=== PATIENT | female | born 1940 | race Caucasian/White ===

== ENCOUNTER 2018-02-03 23:45 | Observation (INO) | payer MEDICARE ==
[~2018-02-03] VITALS: Ht 157.5 cm; Wt 56.9 kg
[~2018-02-03 23:45] MED LIST: ALBU90OI6 INH; ALEN70 PO; ALLERCLEAR10 MG PO; AMLO5 PO; ASPI81CH PO; ATEN25 PO; B-100 COMPLEX100 MG PO; BREO ELLIPTA 11 EACH IH; BUPR150ERA PO; CALCA500CH PO; CHOL10002 PO; FISH1000 PO; FLUT.05NI; MELO7.5 PO; Omeprazole20 M1 PO; RANI150 PO; RISE35 PO
[2018-02-04] MEDS ORDERED: AMLOATOR PO (00:03)
[2018-02-04] MEDS ORDERED: ATEN25 PO (00:04)
[2018-02-04] MEDS ORDERED: LOSA25 PO (00:06)
[2018-02-04 00:55] LABS: BASOPHILS ABSOLUTE AUTO 0.07 K/mm3 (0.00-0.23); BASOPHILS PERCENT AUTO 1 % (0-2); EOSINOPHILS ABSOLUTE AUTO 0.09 K/mm3 (0.00-0.68); EOSINOPHILS PERCENT AUTO 1 % (0-6); Hemoglobin 15.1 g/dL (11.5-16.0); IMMATURE GRAN ABSOLUTE AUTO 0.06 K/mm3 (0.00-0.10); IMMATURE GRAN PERCENT AUTO 0 % (0-1); LYMPHOCYTES ABSOLUTE AUTO 2.61 K/mm3 (0.84-5.20); LYMPHOCYTES PERCENT AUTO 17 % (21-46); MONOCYTES ABSOLUTE AUTO 0.72 K/mm3 (0.16-1.47); MONOCYTES PERCENT AUTO 5 % (4-13); Mean Corpuscular HGB 30.6 pg (26.0-34.0); Mean Corpuscular HGB Conc 34.3 g/dL (31.5-36.5); Mean Corpuscular Volume 89 fL (80-100); Mean Platelet Volume 9.6 fL (9.1-12.4); NEUTROPHILS ABSOLUTE AUTO 11.49 K/mm3 (1.96-9.15); NEUTROPHILS PERCENT AUTO 76 % (41-73); Platelet Count 366 K/mm3 (150-400); RDW Coefficient Variation 13.7 % (11.7-14.2); Red Blood Cell Count 4.94 M/mm3 (3.80-5.20); White Blood Cell Count 15.04 K/mm3 (4.00-11.30)
[2018-02-04 00:58] LABS: Source, Urine Clean Catch
[2018-02-04 01:00] LABS: Bilirubin, Urine Neg (Neg); Blood, Urine 2+ (Neg); Glucose Qualitative, Urine Neg (Neg); Ketones, Urine Neg (Neg); Leukocyte Esterase, Urine Neg (Neg); Nitrite, Urine Neg (Neg); Protein, Urine Neg (Neg); Specific Gravity, Urine 1.015 (1.003-1.022); Urobilinogen, Urine NORM (Normal); pH, Urine 6.5 (5.0-8.0)
[2018-02-04 01:05] LABS: Appearance, Urine Clear (Clear); Bacteria Not Seen /hpf; Color, Urine Yellow (P-Yellow); Red Blood Cells, Urine 0-2 /hpf (0-2); Squamous Epithelial Cells Few /hpf (Few); White Blood Cells, Urine Not Seen /hpf (0-5)
[2018-02-04 01:07] LABS: Alanine Aminotransfer (ALT/SGP 25 U/L (12-78); Albumin, Blood 3.5 g/dL (3.4-5.0); Albumin/Globulin Ratio 0.8 (0.8-1.8); Alk Phos 75 U/L (50-136); Anion Gap 8 mmol/L (6-16); Aspartate Aminotrans (AST/SGOT 23 U/L (12-37); Bilirubin, Total 0.4 mg/dL (0.1-1.0); Blood Urea Nitrogen 17 mg/dL (8-24); Bun/Creatinine Ratio 23.3 (12.0-20.0); CO2, Blood 28 mmol/L (21-32); Chloride, Blood 98 mmol/L (98-108); Creatinine, Blood 0.73 mg/dL (0.40-1.00); Globulin, Blood 4.4 g/dL (2.2-4.0); Glomerular Filtration Rate >60 (60-); Glucose, Blood 108 mg/dL (70-99); Potassium, Blood 4.1 mmol/L (3.5-5.5); Sodium, Blood 134 mmol/L (136-145); Total Protein, Blood 7.9 g/dL (6.4-8.2)
[2018-02-04 05:19] LABS: Hematocrit 41.3 % (33.0-51.0); Hemoglobin 14.3 g/dL (11.5-16.0); Mean Corpuscular HGB 30.1 pg (26.0-34.0); Mean Corpuscular HGB Conc 34.6 g/dL (31.5-36.5); Mean Corpuscular Volume 87 fL (80-100); Mean Platelet Volume 9.6 fL (9.1-12.4); Platelet Count 340 K/mm3 (150-400); RDW Coefficient Variation 13.5 % (11.7-14.2); RDW Standard Deviation 43.2 fL (35.1-46.3); Red Blood Cell Count 4.75 M/mm3 (3.80-5.20); White Blood Cell Count 15.05 K/mm3 (4.00-11.30)
[2018-02-04 05:42] LABS: Alanine Aminotransfer (ALT/SGP 23 U/L (12-78); Albumin, Blood 3.2 g/dL (3.4-5.0); Albumin/Globulin Ratio 0.8 (0.8-1.8); Alk Phos 70 U/L (50-136); Anion Gap 10 mmol/L (6-16); Aspartate Aminotrans (AST/SGOT 26 U/L (12-37); Bilirubin, Total 0.7 mg/dL (0.1-1.0); Blood Urea Nitrogen 16 mg/dL (8-24); Bun/Creatinine Ratio 22.5 (12.0-20.0); CO2, Blood 26 mmol/L (21-32); Calcium, Blood 9.1 mg/dL (8.5-10.1); Chloride, Blood 96 mmol/L (98-108); Creatinine, Blood 0.71 mg/dL (0.40-1.00); Glomerular Filtration Rate >60 (60-); Glucose, Blood 110 mg/dL (70-99); Potassium, Blood 4.2 mmol/L (3.5-5.5); Sodium, Blood 132 mmol/L (136-145); Total Protein, Blood 7.2 g/dL (6.4-8.2)
== END 2018-02-05 14:11 | disposition home or self-care (01) ==
LOC: ER 23:45 → MEDS 02-04 02:42 → ENPENDDIS 02-05 11:00 → MEDS 02-05 11:33
PROVIDERS: Emergency Medicine; Internal Medicine
DX: K56.609 Unspecified intestinal obstruction, unspecified as to partial versus complete obstruction (principal); I10 Essential (primary) hypertension; J44.9 Chronic obstructive pulmonary disease, unspecified; F17.210 Nicotine dependence, cigarettes, uncomplicated; Z88.1 Allergy status to other antibiotic agents; Z88.8 Allergy status to other drugs, medicaments and biological substances; Z79.899 Other long term (current) drug therapy; Z79.1 Long term (current) use of non-steroidal anti-inflammatories (NSAID); Z79.82 Long term (current) use of aspirin
CPT/HCPCS: 36415; 74177; 80053; 81001; 82947; 83690; 85025; 85027; 93005; 93010; 94640; 94760; 96374; 99285; G0378; J1650; J1885; J2310; J2405; J3010; J7030; Q9967

== ENCOUNTER 2020-04-21 08:07 | Emergency (ER) | payer MEDICARE ==
[~2020-04-21] VITALS: Ht 154.9 cm; Wt 59.0 kg
[~2020-04-21 08:07] MED LIST changes: +AMLOATOR PO; +LOSA25 PO; +Robaxin-750750 MG PO; +TRAM50 PO
[2020-04-21] MEDS ORDERED: ATOR20 PO (08:20)
[2020-04-21] MEDS ORDERED: GUAI600T33 PO (08:20)
[2020-04-21 08:44] LABS: BASOPHILS ABSOLUTE AUTO 0.06 K/mm3 (0.00-0.23); BASOPHILS PERCENT AUTO 0 % (0-2); EOSINOPHILS ABSOLUTE AUTO 0.12 K/mm3 (0.00-0.68); EOSINOPHILS PERCENT AUTO 1 % (0-6); Hematocrit 38.2 % (33.0-51.0); Hemoglobin 12.3 g/dL (11.5-16.0); IMMATURE GRAN ABSOLUTE AUTO 0.05 K/mm3 (0.00-0.10); IMMATURE GRAN PERCENT AUTO 0 % (0-1); LYMPHOCYTES ABSOLUTE AUTO 2.06 K/mm3 (0.84-5.20); LYMPHOCYTES PERCENT AUTO 15 % (21-46); MONOCYTES ABSOLUTE AUTO 0.79 K/mm3 (0.16-1.47); MONOCYTES PERCENT AUTO 6 % (4-13); Mean Corpuscular HGB 29.6 pg (26.0-34.0); Mean Corpuscular HGB Conc 32.2 g/dL (31.5-36.5); Mean Corpuscular Volume 92 fL (80-100); Mean Platelet Volume 9.7 fL (9.1-12.4); NEUTROPHILS PERCENT AUTO 78 % (41-73); Platelet Count 278 K/mm3 (150-400); RDW Coefficient Variation 13.8 % (11.7-14.2); RDW Standard Deviation 47.2 fL (35.1-46.3); Red Blood Cell Count 4.15 M/mm3 (3.80-5.20); White Blood Cell Count 13.98 K/mm3 (4.00-11.30)
[2020-04-21 08:59] LABS: Alanine Aminotransfer (ALT/SGP 13 U/L (12-78); Albumin, Blood 2.8 g/dL (3.4-5.0); Albumin/Globulin Ratio 0.7 (0.8-1.8); Alk Phos 78 U/L (50-136); Anion Gap 4 mmol/L (6-16); Aspartate Aminotrans (AST/SGOT 19 U/L (12-37); Bilirubin, Total 0.6 mg/dL (0.1-1.0); Blood Urea Nitrogen 11 mg/dL (8-24); Bun/Creatinine Ratio 13.9 (12.0-20.0); CO2, Blood 26 mmol/L (21-32); Calcium, Blood 8.3 mg/dL (8.5-10.1); Chloride, Blood 103 mmol/L (98-108); Creatinine, Blood 0.79 mg/dL (0.40-1.00); Globulin, Blood 3.9 g/dL (2.2-4.0); Glomerular Filtration Rate >60 (60-); Glucose, Blood 108 mg/dL (70-99); Potassium, Blood 4.4 mmol/L (3.5-5.5); Sodium, Blood 133 mmol/L (136-145); Total Protein, Blood 6.7 g/dL (6.4-8.2)
== END 2020-04-21 10:38 | disposition home or self-care (01) ==
LOC: ER 08:07
PROVIDERS: Emergency Medicine
DX: I95.9 Hypotension, unspecified (principal); Z88.1 Allergy status to other antibiotic agents; Z88.5 Allergy status to narcotic agent; Z88.8 Allergy status to other drugs, medicaments and biological substances; Z79.899 Other long term (current) drug therapy; Z79.82 Long term (current) use of aspirin; I10 Essential (primary) hypertension; I47.1 Supraventricular tachycardia; J44.9 Chronic obstructive pulmonary disease, unspecified
CPT/HCPCS: 80053; 84484; 85025; 93005; 93010; 96360; 99284-25; J7030

== ENCOUNTER 2021-10-23 23:24 | Emergency (ER) | payer MEDICARE ==
[~2021-10-23] VITALS: Ht 154.9 cm; Wt 55.8 kg
[~2021-10-23 23:24] MED LIST changes: +ATOR20 PO; +GUAI600T33 PO
[2021-10-23 23:46] LABS: BASOPHILS ABSOLUTE AUTO 0.05 K/mm3 (0.00-0.23); BASOPHILS PERCENT AUTO 0 % (0-2); EOSINOPHILS ABSOLUTE AUTO 0.03 K/mm3 (0.00-0.68); EOSINOPHILS PERCENT AUTO 0 % (0-6); Hematocrit 38.6 % (33.0-51.0); Hemoglobin 12.6 g/dL (11.5-16.0); IMMATURE GRAN ABSOLUTE AUTO 0.05 K/mm3 (0.00-0.10); IMMATURE GRAN PERCENT AUTO 0 % (0-1); LYMPHOCYTES ABSOLUTE AUTO 2.27 K/mm3 (0.84-5.20); LYMPHOCYTES PERCENT AUTO 18 % (21-46); MONOCYTES ABSOLUTE AUTO 0.82 K/mm3 (0.16-1.47); MONOCYTES PERCENT AUTO 7 % (4-13); Mean Corpuscular HGB 28.1 pg (26.0-34.0); Mean Corpuscular HGB Conc 32.6 g/dL (31.5-36.5); Mean Corpuscular Volume 86 fL (80-100); Mean Platelet Volume 9.6 fL (9.1-12.4); NEUTROPHILS ABSOLUTE AUTO 9.46 K/mm3 (1.96-9.15); NEUTROPHILS PERCENT AUTO 75 % (41-73); Platelet Count 246 K/mm3 (150-400); RDW Coefficient Variation 15.3 % (11.7-14.2); RDW Standard Deviation 48.5 fL (35.1-46.3); Red Blood Cell Count 4.48 M/mm3 (3.80-5.20); White Blood Cell Count 12.68 K/mm3 (4.00-11.30)
[2021-10-24] LABS: Anion Gap 7 mmol/L (6-16); Blood Urea Nitrogen 12 mg/dL (8-24); Bun/Creatinine Ratio 15.8 (12.0-20.0); CO2, Blood 27 mmol/L (21-32); Calcium, Blood 8.5 mg/dL (8.5-10.1); Chloride, Blood 99 mmol/L (98-108); Creatinine, Blood 0.76 mg/dL (0.40-1.00); Glomerular Filtration Rate >60 (60-); Glucose, Blood 144 mg/dL (70-99); Potassium, Blood 3.3 mmol/L (3.5-5.5); Sodium, Blood 133 mmol/L (136-145)
[2021-10-24] MEDS ORDERED: DOXY100 PO (00:59)
[2021-10-24] MEDS ORDERED: PRED20 PO (00:59)
== END 2021-10-24 01:58 | disposition home or self-care (01) ==
LOC: ER 23:24
PROVIDERS: Student in an Organized Health Care Education/Training Program
DX: U07.1 COVID-19 (principal); R55 Syncope and collapse; E86.0 Dehydration; E87.6 Hypokalemia; J44.9 Chronic obstructive pulmonary disease, unspecified; Z79.82 Long term (current) use of aspirin; Z79.2 Long term (current) use of antibiotics; Z79.899 Other long term (current) drug therapy; I10 Essential (primary) hypertension; Z88.1 Allergy status to other antibiotic agents; Z88.5 Allergy status to narcotic agent; Z88.8 Allergy status to other drugs, medicaments and biological substances
CPT/HCPCS: 36415; 71045; 80048; 85025; 93005; 93010; 99284-25; A9270; J7030; J7512; M0247

== ENCOUNTER 2021-12-30 12:46 | Emergency (ER) | payer MEDICARE ==
[~2021-12-30] VITALS: Ht 157.5 cm; Wt 54.4 kg
[~2021-12-30 12:46] MED LIST changes: +DOXY100 PO; +PRED20 PO; +Robaxin750 MG PO; +Ultram50 MG PO; +Voltaren100 GM TOP
[2021-12-30 13:22] LABS: BASOPHILS PERCENT AUTO 1 % (0-2); EOSINOPHILS ABSOLUTE AUTO 0.12 K/mm3 (0.00-0.68); EOSINOPHILS PERCENT AUTO 1 % (0-6); Hematocrit 36.7 % (33.0-51.0); Hemoglobin 12.4 g/dL (11.5-16.0); IMMATURE GRAN PERCENT AUTO 1 % (0-1); LYMPHOCYTES ABSOLUTE AUTO 2.26 K/mm3 (0.84-5.20); LYMPHOCYTES PERCENT AUTO 12 % (21-46); MONOCYTES ABSOLUTE AUTO 0.88 K/mm3 (0.16-1.47); MONOCYTES PERCENT AUTO 5 % (4-13); Mean Corpuscular HGB 28.4 pg (26.0-34.0); Mean Corpuscular HGB Conc 33.8 g/dL (31.5-36.5); Mean Corpuscular Volume 84 fL (80-100); Mean Platelet Volume 9.3 fL (9.1-12.4); NEUTROPHILS ABSOLUTE AUTO 15.26 K/mm3 (1.96-9.15); NEUTROPHILS PERCENT AUTO 82 % (41-73); Platelet Count 343 K/mm3 (150-400); RDW Coefficient Variation 14.2 % (11.7-14.2); RDW Standard Deviation 43.7 fL (35.1-46.3); Red Blood Cell Count 4.37 M/mm3 (3.80-5.20); White Blood Cell Count 18.72 K/mm3 (4.00-11.30)
[2021-12-30 14:24] LABS: Albumin, Blood 2.9 g/dL (3.4-5.0); Albumin/Globulin Ratio 0.6 (0.8-1.8); Alk Phos 87 U/L (50-136); Anion Gap 9 mmol/L (6-16); Aspartate Aminotrans (AST/SGOT 20 U/L (12-37); Bilirubin, Total 0.5 mg/dL (0.1-1.0); Blood Urea Nitrogen 14 mg/dL (8-24); Bun/Creatinine Ratio 17.1 (12.0-20.0); CO2, Blood 24 mmol/L (21-32); Calcium, Blood 9.1 mg/dL (8.5-10.1); Chloride, Blood 100 mmol/L (98-108); Creatinine, Blood 0.82 mg/dL (0.40-1.00); Glomerular Filtration Rate >60 (60-); Glucose, Blood 113 mg/dL (70-99); Potassium, Blood 3.5 mmol/L (3.5-5.5); Sodium, Blood 133 mmol/L (136-145); Total Protein, Blood 7.9 g/dL (6.4-8.2)
[2021-12-30 14:37] LABS: Alanine Aminotransfer (ALT/SGP 16 U/L (12-78)
[2021-12-30] MEDS ORDERED: DOXY100 PO (15:58)
== END 2021-12-30 16:46 | disposition home or self-care (01) ==
LOC: ER 12:46
PROVIDERS: Physician Assistant
DX: J18.9 Pneumonia, unspecified organism (principal); I10 Essential (primary) hypertension; J44.9 Chronic obstructive pulmonary disease, unspecified; Z88.1 Allergy status to other antibiotic agents; Z88.5 Allergy status to narcotic agent; Z88.8 Allergy status to other drugs, medicaments and biological substances; Z87.891 Personal history of nicotine dependence; Z79.899 Other long term (current) drug therapy
CPT/HCPCS: 36415; 71046; 80053; 83605; 83690; 83880; 84484; 85025; 94640; 94664; J0696

== ENCOUNTER 2022-09-22 13:14 | Inpatient (IN) | payer MEDICARE ==
[~2022-09-22] VITALS: Ht 162.6 cm; Wt 54.1 kg
[~2022-09-22 13:14] MED LIST changes: +ATEN50 PO; -LOSA25 PO; +LOSA50 PO; -MELO7.5 PO; +MOBIC15 MG PO
[2022-09-22 13:36] LABS: Hemoglobin 12.7 g/dL (11.5-16.0); Mean Corpuscular HGB 28.9 pg (26.0-34.0); Mean Corpuscular HGB Conc 30.2 g/dL (31.5-36.5); Mean Corpuscular Volume 96 fL (80-100); Mean Platelet Volume 9.7 fL (9.1-12.4); Platelet Count 403 K/mm3 (150-400); RDW Coefficient Variation 14.4 % (11.7-14.2); RDW Standard Deviation 50.2 fL (35.1-46.3); Red Blood Cell Count 4.39 M/mm3 (3.80-5.20); White Blood Cell Count 23.04 K/mm3 (4.00-11.30)
[2022-09-22 13:55] LABS: International Normalized Ratio 1.36
[2022-09-22 13:58] LABS: BASOPHILS PERCENT MAN 0 % (0-2); EOSINOPHILS PERCENT MAN 0 % (0-6); LYMPHOCYTES % ATYPICAL MANUAL 2 % (0-0); LYMPHOCYTES ABSOLUTE MAN 7.14 K/mm3 (0.84-5.20); LYMPHOCYTES PERCENT MAN 29 % (21-46); MONOCYTES ABSOLUTE MAN 1.15 K/mm3 (0.16-1.47); MONOCYTES PERCENT MAN 5 % (4-13); MYELOCYTE ABSOLUTE MAN 0.23 K/mm3 (0.00-0.00); MYELOCYTE PERCENT MAN 1 % (0-0); NEUTROPHILS ABSOLUTE MAN 14.51 K/mm3 (1.96-9.15); SEG NEUTROPHILS PERCENT MAN 63 % (41-73); TOTAL CELLS COUNTED 100
[2022-09-22 14:03] LABS: Albumin, Blood 2.9 g/dL (3.4-5.0); Albumin/Globulin Ratio 0.7 (0.8-1.8); Bilirubin, Total 1.2 mg/dL (0.1-1.0); Bun/Creatinine Ratio 13.7 (12.0-20.0); Calcium, Blood 7.3 mg/dL (8.5-10.1); Creatinine, Blood 1.02 mg/dL (0.40-1.00); Globulin, Blood 4.3 g/dL (2.2-4.0); Magnesium, Blood 0.8 mg/dL (1.6-2.4); Potassium, Blood 3.3 mmol/L (3.5-5.5); Total Protein, Blood 7.2 g/dL (6.4-8.2)
--- NOTE | 2022-09-22 14:12 | NUR ---
Pt. is in ED26, Nurse process engineering manager requested this report programmer to be with family in Consult room while doctor gave an update of the Pts. condition. Spouse is present with Pts. sister. Spouse displays evidence of engagement and understanding, and verbalized that he is a retired graining machine operator with [employer] in [place]. Pt. and spouse are people of sadia and Spouse verbalized gratitude for the spiritual care visit. Confirmed with nurses that Spouse would like to see Pt. when it is advisable.
[2022-09-22 14:25] LABS: Source, Urine Foley catheter
[2022-09-22 14:32] LABS: Appearance, Urine Clear (Clear); Bilirubin, Urine Neg (Neg); Blood, Urine 4+ (Neg); Color, Urine Amber (P-Yellow); Glucose Qualitative, Urine Neg (Neg); Ketones, Urine 1+ (Neg); Leukocyte Esterase, Urine 1+ (Neg); Nitrite, Urine Neg (Neg); Protein, Urine 2+ (Neg); Specific Gravity, Urine 1.015 (1.003-1.022); Urobilinogen, Urine 2+ (Normal)
[2022-09-22 14:40] LABS: PCO2 Arterial 44.5 mmHg (35-45); PO2 Arterial 453 mmHg (80-100)
[2022-09-22 14:42] LABS: U Amphetamine Screen Not Detected; U Barbituate Screen Not Detected; U Benzodiazapine Screen Not Detected; U Buprenorphine Screen Not Detected; U Cannabinoids Screen Not Detected; U Cocaine Screen Not Detected; U Methadone Screen Not Detected; U Methamphetamine Screen Not Detected; U Opiates Screen Not Detected; U Oxycodone Screen Not Detected; U Phencyclidine Screen Not Detected; U Propoxyphene Screen Not Detected
[2022-09-22 14:44] LABS: Mucus Light (0-Heavy); Red Blood Cells, Urine 25-50 /hpf (0-2)
[2022-09-22 14:45] LABS: Bacteria Few /hpf; Squamous Epithelial Cells Few /hpf (Few)
[2022-09-22 14:52] LABS: pH Blood Arterial 7.17 (7.35-7.45)
[2022-09-22 15:06] LABS: Influenza A, PCR NEGATIVE (NEGATIVE); Influenza B, PCR NEGATIVE (NEGATIVE); Resp Syncytial Virus, PCR NEGATIVE (NEGATIVE)
[2022-09-22 15:19] LABS: SARS-Cov-2 (COVID-19) PCR, MMC POSITIVE (NEGATIVE)
--- NOTE | 2022-09-22 16:33 | NUR ---
Met with Pt and family in ED room. Admitting provider Adam present reviewing plan of care with family. Family reports Pt's wishes are no CPR at this time. Pt resting on gurney and is intubated, non responsive. Offered supportive visit with family agreeable to continued PC visits. Spoke with hospitalist Adam who reports Pt found down and non responisive. Paramedics found Pt significantly hypoxic. Palliative Care will remain available for supportive and therapeutic visits.
[2022-09-22 17:35] LABS: Base Excess Venous -9.5 mmol/L; Bicarbonate Venous 16.8 mmol/L (24.0-30.0); PCO2 Venous 46.5 mmHg (38-42)
[2022-09-22 17:36] LABS: pH Blood Venous 7.21 (7.34-7.37)
--- NOTE | 2022-09-22 19:30 | NUR ---
ICU ADMISSION / SHIFT SUMMARY: REPORT RECEIVED FROM QUETA MORFIN IN ED. PT ARRIVED TO ICU-10 AT APPROX 1640. ON ARRIVAL, SHE IS TREMULOUS BUT OTHERWISE NOT RESPONSIVE TO STIMULUS. SHE HAS SINCE WOKEN UP & IS ABLE TO TRACK THIS RN W/ EYES, FOLLOW DIRECTIONS & ANSWER YES/ NO Qs BY NODDING HEAD. BILAT SOFT WRIST RESTRAINTS IN PLACE & PROPOFOL INFUSING FOR SEDATION. LS COARSE T/O, VENT SETTINGS: AC/VC 16/450/10/50%, PEEP DECREASED BY DR SPARKS TO 5.0 & PT TOLERATED WELL. COPIOUS AMNTS THICK [place] SPUTUM SUCTIONED THROUGH ETT. MONITOR SHOWS AFIB W/ HR 110s, NOW 90s. BP STABLE. OGT IN PLACE, WAS TO LIS, NOW CLAMPED FOLLOWING VETERINARY PHYSIOLOGIST PER EMAR. TEMP KINNEY PATENT/ DRAINING W/ LARGE AMNTS PALE YELLOW URINE OUT. SKIN CONDITION OVERALL FRAGILE, ECCHYMOTIC. SMALL REDDENED AREA NOTED TO COCCYX. REPORT HAS BEEN GIVEN TO RN TO ASSUME CARE.
[2022-09-23 03:46] LABS: PCO2 Arterial 26.6 mmHg (35-45); PO2 Arterial 145 mmHg (80-100); pH Blood Arterial 7.42 (7.35-7.45)
[2022-09-23 04:34] LABS: Free Thyroxine 1.9 ng/dL (0.70-1.60); Magnesium, Blood 1.2 mg/dL (1.6-2.4)
[2022-09-23 05:01] LABS: BASOPHILS ABSOLUTE AUTO 0.02 K/mm3 (0.00-0.23); BASOPHILS PERCENT AUTO 0 % (0-2); EOSINOPHILS PERCENT AUTO 0 % (0-6); Hematocrit 31.7 % (33.0-51.0); Hemoglobin 10.8 g/dL (11.5-16.0); IMMATURE GRAN ABSOLUTE AUTO 0.08 K/mm3 (0.00-0.10); IMMATURE GRAN PERCENT AUTO 1 % (0-1); LYMPHOCYTES ABSOLUTE AUTO 1.06 K/mm3 (0.84-5.20); LYMPHOCYTES PERCENT AUTO 6 % (21-46); MONOCYTES ABSOLUTE AUTO 0.65 K/mm3 (0.16-1.47); MONOCYTES PERCENT AUTO 4 % (4-13); Mean Corpuscular HGB 28.9 pg (26.0-34.0); Mean Corpuscular HGB Conc 34.1 g/dL (31.5-36.5); Mean Platelet Volume 9.5 fL (9.1-12.4); NEUTROPHILS PERCENT AUTO 89 % (41-73); Platelet Count 343 K/mm3 (150-400); RDW Coefficient Variation 14.6 % (11.7-14.2); RDW Standard Deviation 44.7 fL (35.1-46.3); Red Blood Cell Count 3.74 M/mm3 (3.80-5.20); White Blood Cell Count 17.21 K/mm3 (4.00-11.30)
[2022-09-23 05:28] LABS: Mean Corpuscular Volume 85 fL (80-100)
[2022-09-23 05:39] LABS: Albumin, Blood 2.3 g/dL (3.4-5.0); Albumin/Globulin Ratio 0.7 (0.8-1.8); Bilirubin, Total 0.5 mg/dL (0.1-1.0); Calcium, Blood 5.4 mg/dL (8.5-10.1); Creatinine, Blood 0.87 mg/dL (0.40-1.00); Globulin, Blood 3.5 g/dL (2.2-4.0); Potassium, Blood 3.5 mmol/L (3.5-5.5); Thyroid Stimulating Hormone 0.171 uIU/mL (0.360-4.800); Total Protein, Blood 5.8 g/dL (6.4-8.2)
--- NOTE | 2022-09-23 07:08 | NUR ---
PATIENT INTUBATED AND SEDATED. OPENS EYES TO VOICE, NODS APPROPRIATELY AND FOLLOWS COMMANDS. BILATERAL WRIST RESTRAINTS IN PLACE. SR/ST WITH LABILE BLOOD PRESSURE. AC/VC 16/450/5/40. INLINE SECRETIONS DECREASING OVER THE LENGTH OF THE SHIFT. OGT IN PLACE. KINNEY PATENT. PROPOFOL AND NS INFUSING.
--- NOTE | 2022-09-23 09:41 | NUR ---
PT EXTUBATED AT 0936 TO 4L NC. PT IS A/O X4. ABLE TO GET HEARING AIDS IN TO ASSIST WITH COMMUNICATION. PT MANAGING OWN SECRETIONS. NO SIGN OF DISTRESS. SUPPORTIVE FAMILY AT BEDSIDE.
--- NOTE | 2022-09-23 13:00 | NUR ---
Pt. is awake and welcomes my visit. Pt. is pleasant. After introductions facilitaed a life review and considered element of sadia and belief. Pt. displays evidence of having a great perspective and spiritual of gratitude for her present recovery. Establish rapport, and prayed with pt. Pt. verbalized gratitude for the spiritual care visit.
[2022-09-23] MEDS ORDERED: ALBU8HFA2 INH (15:12)
[2022-09-23] MEDS ORDERED: Cyclobenzaprine5 MG PO (15:13)
[2022-09-23] MEDS ORDERED: SPIR25 PO (15:14)
[2022-09-23] MEDS ORDERED: AMLO5 PO (15:15)
--- NOTE | 2022-09-23 18:00 | NUR ---
SUMMARY PT EXTUBATED THIS AM TO 4L NC. A/O X4. MANAGING SECRETIONS WITHOUT ISSUE. PASSED BEDSIDE SWALLOW EVAL. UP TO CHAIR THIS EVENING THEN BACK TO BED WITH FWW AND GAIT BELT. PT HAS TREMORS IN HANDS. STATES THIS STARTED BEFORE ADMIT TO HOSPITAL. HAS GOOD STRENGTH IN ARMS AND LEGS. NO SIGN OF DISTRESS. USING CALL LIGHT APPROPRIATELY.
--- NOTE | 2022-09-23 20:28 | NUR ---
ASSUMED CARE AT 1900 PATIENT IS ALERT AND ORIENTED X4. 0XYGEN TITRATED OFF, 02 SATS 96% ON RA. HR ST AT 106, BP STABLE, DENIES CP PRESSURE. KINNEY PATENT AND DRAINING TO GRAVITY, CLEAR YELLOW. PATIENT DECLINED REPOSITIONING, ABLE TO MOVE SELF. CALL LIGHT IN REACH
[2022-09-24 03:51] LABS: BASOPHILS ABSOLUTE AUTO 0.03 K/mm3 (0.00-0.23); BASOPHILS PERCENT AUTO 0 % (0-2); EOSINOPHILS PERCENT AUTO 0 % (0-6); Hematocrit 28.5 % (33.0-51.0); Hemoglobin 9.7 g/dL (11.5-16.0); IMMATURE GRAN PERCENT AUTO 1 % (0-1); LYMPHOCYTES ABSOLUTE AUTO 3.07 K/mm3 (0.84-5.20); LYMPHOCYTES PERCENT AUTO 17 % (21-46); MONOCYTES ABSOLUTE AUTO 1.21 K/mm3 (0.16-1.47); MONOCYTES PERCENT AUTO 7 % (4-13); Mean Corpuscular HGB 29.1 pg (26.0-34.0); Mean Corpuscular Volume 86 fL (80-100); Mean Platelet Volume 9.2 fL (9.1-12.4); NEUTROPHILS ABSOLUTE AUTO 13.69 K/mm3 (1.96-9.15); NEUTROPHILS PERCENT AUTO 76 % (41-73); Platelet Count 291 K/mm3 (150-400); RDW Coefficient Variation 14.8 % (11.7-14.2); RDW Standard Deviation 46.2 fL (35.1-46.3); Red Blood Cell Count 3.33 M/mm3 (3.80-5.20)
[2022-09-24 04:28] LABS: Magnesium, Blood 1.7 mg/dL (1.6-2.4)
[2022-09-24 04:59] LABS: Albumin, Blood 2.2 g/dL (3.4-5.0); Anion Gap 7 mmol/L (6-16); Blood Urea Nitrogen 16 mg/dL (8-24); Bun/Creatinine Ratio 19.9 (12.0-20.0); CO2, Blood 21 mmol/L (21-32); Calcium, Blood 7.6 mg/dL (8.5-10.1); Chloride, Blood 108 mmol/L (98-108); Creatinine, Blood 0.81 mg/dL (0.40-1.00); Glomerular Filtration Rate 73 (60-); Glucose, Blood 87 mg/dL (70-99); Phosphorus, Blood 2.7 mg/dL (2.5-4.9); Potassium, Blood 3.4 mmol/L (3.5-5.5); Sodium, Blood 136 mmol/L (136-145)
--- NOTE | 2022-09-24 18:31 | NUR ---
SUMMARY PT A/O X4. TREMORS IMPROVED TODAY. PT ABLE TO TRANSFER WITH FWW WITH MINIMAL ASSIST. MOVING SELF IN BED. RA ALL DAY. CHANGED TO MEDICAL STATUS TODAY. NO OTHER CHANGES THIS SHIFT.
--- NOTE | 2022-09-24 22:00 | NUR ---
REPORT GIVEN AND PATIENT TRANSFERRED TO MEDICAL FLOOR ROOM 359
[2022-09-25 05:02] LABS: Hematocrit 30.4 % (33.0-51.0); Hemoglobin 10.3 g/dL (11.5-16.0); Mean Corpuscular HGB 28.9 pg (26.0-34.0); Mean Corpuscular HGB Conc 33.9 g/dL (31.5-36.5); Mean Corpuscular Volume 85 fL (80-100); Mean Platelet Volume 9.4 fL (9.1-12.4); Platelet Count 315 K/mm3 (150-400); RDW Coefficient Variation 14.9 % (11.7-14.2); RDW Standard Deviation 46.4 fL (35.1-46.3); Red Blood Cell Count 3.57 M/mm3 (3.80-5.20); White Blood Cell Count 15.52 K/mm3 (4.00-11.30)
[2022-09-25 05:32] LABS: Free Thyroxine 1.63 ng/dL (0.70-1.60)
[2022-09-25 05:39] LABS: Albumin, Blood 2.4 g/dL (3.4-5.0); Anion Gap 7 mmol/L (6-16); Blood Urea Nitrogen 20 mg/dL (8-24); Bun/Creatinine Ratio 24.6 (12.0-20.0); CO2, Blood 22 mmol/L (21-32); Calcium, Blood 7.6 mg/dL (8.5-10.1); Chloride, Blood 108 mmol/L (98-108); Creatinine, Blood 0.81 mg/dL (0.40-1.00); Glomerular Filtration Rate 73 (60-); Glucose, Blood 85 mg/dL (70-99); Phosphorus, Blood 2.1 mg/dL (2.5-4.9); Sodium, Blood 137 mmol/L (136-145); Thyroid Stimulating Hormone 0.131 uIU/mL (0.360-4.800); Triiodothyronine, Free 1.27 pg/mL (2.18-3.98)
--- NOTE | 2022-09-25 06:39 | NUR ---
Nurse was transferred from ICU. Patient is AOX4. Lung sounds diminished, sats above 92%, non-productive cough noted. Patient remains on room air.
[2022-09-25] MEDS ORDERED: VISBIOME 112.51 EACH PO (15:19)
[2022-09-25] MEDS ORDERED: AMOCLA875 PO (15:19)
[2022-09-25] MEDS ORDERED: DECADRON6 M1 PO (15:20)
--- NOTE | 2022-09-25 17:46 | NUR ---
PT DISCHARGED THE PT AND HER FAMILY VERBALIZED UNDERSTANDING OF HE DC INSTRUCTIONS. THE PTS PESCIPTIONS WERE FAXED TO [facility] REQUESTED. AN ATTEMPT TO MAKE THE PT AN APPOINTMENT WITH DR. RUSSELL WAS MADE PER DR. BECK ORDER, HOWEVER THE OFFICE WOULD NOT MAKE THE APPOINTMENT UNTIL A REFERAL WAS MADE BY THE PTS PCP. THE PT WAS TRANSFERED VIA WHEELCHAIR ACCOMPANIED BY HE RN AND HER FAMILY.
== END 2022-09-25 16:44 | disposition home health service (06) | DRG 871 ==
LOC: ER 13:14 → ICUW 15:08 → MEDS 09-24 21:57
PROVIDERS: Internal Medicine; Internal Medicine Critical Care Medicine; Nurse Practitioner Acute Care; Student in an Organized Health Care Education/Training Program; ADMIT Family Medicine
PROC: 3E0333Z Introduction of Anti-inflammatory into Peripheral Vein, Percutaneous Approach (ICD-10-PCS; principal; 2022-09-22)
PROC: XW0DXM6 Introduction of Baricitinib into Mouth and Pharynx, External Approach, New Technology Group 6 (ICD-10-PCS; 2022-09-22)
PROC: XW033E5 Introduction of Remdesivir Anti-infective into Peripheral Vein, Percutaneous Approach, New Technology Group 5 (ICD-10-PCS; 2022-09-22)
PROC: 3E03329 Introduction of Other Anti-infective into Peripheral Vein, Percutaneous Approach (ICD-10-PCS; 2022-09-22)
PROC: 5A1935Z Respiratory Ventilation, Less than 24 Consecutive Hours (ICD-10-PCS; 2022-09-22)
PROC: 0BH17EZ Insertion of Endotracheal Airway into Trachea, Via Natural or Artificial Opening (ICD-10-PCS; 2022-09-22)
DX: A41.89 Other specified sepsis (principal); G92.8 Other toxic encephalopathy; J12.82 Pneumonia due to coronavirus disease 2019; R65.21 Severe sepsis with septic shock; U07.1 COVID-19; J15.211 Pneumonia due to Methicillin susceptible Staphylococcus aureus; J96.01 Acute respiratory failure with hypoxia; J44.0 Chronic obstructive pulmonary disease with (acute) lower respiratory infection; J44.1 Chronic obstructive pulmonary disease with (acute) exacerbation; E83.51 Hypocalcemia; Z66 Do not resuscitate; Z51.5 Encounter for palliative care; E83.42 Hypomagnesemia; E87.6 Hypokalemia; E78.5 Hyperlipidemia, unspecified; I10 Essential (primary) hypertension; G89.4 Chronic pain syndrome; K21.9 Gastro-esophageal reflux disease without esophagitis; R29.6 Repeated falls; E05.90 Thyrotoxicosis, unspecified without thyrotoxic crisis or storm; E07.81 Sick-euthyroid syndrome; R94.6 Abnormal results of thyroid function studies; Z88.1 Allergy status to other antibiotic agents; Z88.5 Allergy status to narcotic agent; Z88.8 Allergy status to other drugs, medicaments and biological substances; Z79.899 Other long term (current) drug therapy; Z79.02 Long term (current) use of antithrombotics/antiplatelets; Z79.52 Long term (current) use of systemic steroids; Z79.82 Long term (current) use of aspirin; Z79.2 Long term (current) use of antibiotics; Z79.891 Long term (current) use of opiate analgesic; Z86.79 Personal history of other diseases of the circulatory system; Z98.890 Other specified postprocedural states; Z90.710 Acquired absence of both cervix and uterus; Z85.820 Personal history of malignant melanoma of skin; Z87.891 Personal history of nicotine dependence
CPT/HCPCS: 0241U; 31500; 36415; 36600; 51702; 70450; 71045; 80053; 80069; 81001; 82330; 82803; 82947; 83605; 83735; 84100; 84145; 84439; 84443; 84481; 84484; 85025; 85027; 85610; 85730; 86850; 86900; 86901; 87040; 87070; 87077; 87086; 87147; 87186; 87205; 93005; 93010; 94002; 94003; 94640; 94644; 94664; 94761; 96365-59; 96366-59; 96368; 96375-59; 97112; 97116; 97162; 97166; 97530; 97535; 99291-25; 99292; A9270; C1751; C9113; C9399; J0248; J0610; J0696; J1100; J1650; J2370; J2543; J2704; J3370; J3475; J3480; J7030; J7050; J7060

== ENCOUNTER 2022-10-14 18:54 | Inpatient (IN) | payer MEDICARE ==
[~2022-10-14] VITALS: Ht 157.5 cm; Wt 54.6 kg
[~2022-10-14 18:54] MED LIST changes: +ALBU8HFA2 INH; +AMOCLA875 PO; +Cyclobenzaprine5 MG PO; +DECADRON6 M1 PO; +SPIR25 PO; +VISBIOME 112.51 EACH PO
[2022-10-14 19:22] LABS: BASOPHILS ABSOLUTE AUTO 0.04 K/mm3 (0.00-0.23); BASOPHILS PERCENT AUTO 0 % (0-2); EOSINOPHILS ABSOLUTE AUTO 0.01 K/mm3 (0.00-0.68); EOSINOPHILS PERCENT AUTO 0 % (0-6); Hematocrit 33.6 % (33.0-51.0); Hemoglobin 11.4 g/dL (11.5-16.0); IMMATURE GRAN ABSOLUTE AUTO 0.04 K/mm3 (0.00-0.10); IMMATURE GRAN PERCENT AUTO 0 % (0-1); LYMPHOCYTES ABSOLUTE AUTO 2.73 K/mm3 (0.84-5.20); LYMPHOCYTES PERCENT AUTO 29 % (21-46); MONOCYTES ABSOLUTE AUTO 0.47 K/mm3 (0.16-1.47); MONOCYTES PERCENT AUTO 5 % (4-13); Mean Corpuscular HGB 29.1 pg (26.0-34.0); Mean Corpuscular HGB Conc 33.9 g/dL (31.5-36.5); Mean Corpuscular Volume 86 fL (80-100); Mean Platelet Volume 8.7 fL (9.1-12.4); NEUTROPHILS ABSOLUTE AUTO 6.08 K/mm3 (1.96-9.15); NEUTROPHILS PERCENT AUTO 65 % (41-73); Platelet Count 370 K/mm3 (150-400); RDW Coefficient Variation 15.2 % (11.7-14.2); RDW Standard Deviation 47.3 fL (35.1-46.3); Red Blood Cell Count 3.92 M/mm3 (3.80-5.20); White Blood Cell Count 9.37 K/mm3 (4.00-11.30)
[2022-10-14 19:42] LABS: Albumin, Blood 2.5 g/dL (3.4-5.0); Albumin/Globulin Ratio 0.5 (0.8-1.8); Bilirubin, Total 0.6 mg/dL (0.1-1.0); Bun/Creatinine Ratio 13.1 (12.0-20.0); Calcium, Blood 6.9 mg/dL (8.5-10.1); Creatinine, Blood 0.61 mg/dL (0.40-1.00); Globulin, Blood 4.7 g/dL (2.2-4.0); Potassium, Blood 3.3 mmol/L (3.5-5.5); Total Protein, Blood 7.2 g/dL (6.4-8.2)
[2022-10-14 21:39] LABS: Source, Urine Straight Cath
[2022-10-14 22:14] LABS: Appearance, Urine Clear (Clear); Bilirubin, Urine Neg (Neg); Blood, Urine 1+ (Neg); Color, Urine Yellow (P-Yellow); Glucose Qualitative, Urine Neg (Neg); Ketones, Urine 2+ (Neg); Leukocyte Esterase, Urine Neg (Neg); Nitrite, Urine Neg (Neg); Protein, Urine 2+ (Neg); Urobilinogen, Urine NORM (Normal)
[2022-10-14 22:50] LABS: Red Blood Cells, Urine 0-2 /hpf (0-2); White Blood Cells, Urine 0-2 /hpf (0-5)
[2022-10-14 22:51] LABS: Bacteria Rare /hpf; Granular Casts 0-2 /lpf (0); Hyaline Casts 0-2 /lpf (0-2); Squamous Epithelial Cells Few /hpf (Few)
[2022-10-14] MEDS ORDERED: ZYRTEC10 M2 PO (22:51)
[2022-10-14] MEDS ORDERED: LOSA50 PO (22:51)
[2022-10-14] MEDS ORDERED: GUAI600T33 PO (22:53)
--- NOTE | 2022-10-15 04:26 | NUR ---
SUMMARY: PATIENT ARRIVED FROM ER THIS MORNING. PATIENT WAS RECENTLY HOSPITALIZED FOR PNEUMONIA. CURRENTLY STABLE ON RA. VERY COARSE LUNG SOUNDS THROUGHOUT. PATIENT CONFUSED, AOX1-2. DROWSY BUT AROUSABLE. VSS. PLACED ON TELE RUNNING SR TO SINUS TACH. PATIENT RESTING COMFORTABLY ON SIDE. FLUIDS AND K+ REPLACEMENT STARTED. CALL LIGHT IN REACH. BED ALARM ON.
[2022-10-15 04:32] LABS: BASOPHILS ABSOLUTE AUTO 0.03 K/mm3 (0.00-0.23); BASOPHILS PERCENT AUTO 0 % (0-2); EOSINOPHILS PERCENT AUTO 0 % (0-6); Hematocrit 26.7 % (33.0-51.0); Hemoglobin 9.2 g/dL (11.5-16.0); IMMATURE GRAN ABSOLUTE AUTO 0.05 K/mm3 (0.00-0.10); IMMATURE GRAN PERCENT AUTO 1 % (0-1); LYMPHOCYTES ABSOLUTE AUTO 1.95 K/mm3 (0.84-5.20); LYMPHOCYTES PERCENT AUTO 21 % (21-46); MONOCYTES ABSOLUTE AUTO 0.39 K/mm3 (0.16-1.47); MONOCYTES PERCENT AUTO 4 % (4-13); Mean Corpuscular HGB 28.9 pg (26.0-34.0); Mean Corpuscular HGB Conc 34.5 g/dL (31.5-36.5); Mean Corpuscular Volume 84 fL (80-100); NEUTROPHILS ABSOLUTE AUTO 6.81 K/mm3 (1.96-9.15); NEUTROPHILS PERCENT AUTO 74 % (41-73); Platelet Count 311 K/mm3 (150-400); RDW Coefficient Variation 15.3 % (11.7-14.2); RDW Standard Deviation 46.8 fL (35.1-46.3); Red Blood Cell Count 3.18 M/mm3 (3.80-5.20); White Blood Cell Count 9.23 K/mm3 (4.00-11.30)
[2022-10-15 04:53] LABS: Bun/Creatinine Ratio 11.8 (12.0-20.0); Calcium, Blood 6.1 mg/dL (8.5-10.1); Creatinine, Blood 0.59 mg/dL (0.40-1.00); Potassium, Blood 3.2 mmol/L (3.5-5.5)
--- NOTE | 2022-10-15 19:33 | NUR ---
SHIFT SUMMARY- PT IS ALERT AND FAR MORE ORIENTED AT THE END OF THE SHIFT WHEN COMPARED TO THE BEGINNING. THE PT RECIEVED IVF T/O THE SHIFT, SHE HAS HAD A GOOD APPETITE AND GOOD URINE OUTPUT. PT CALLS APPORPRIATELY. PT IN BED, CALL LIGHT IN REACH NO S&S OF DISTRESS AT THE TIME OF SHIFT CHANGE. NIGHT RN WILL CTM.
[2022-10-16 04:35] LABS: BASOPHILS ABSOLUTE AUTO 0.05 K/mm3 (0.00-0.23); BASOPHILS PERCENT AUTO 1 % (0-2); EOSINOPHILS PERCENT AUTO 2 % (0-6); Hemoglobin 9.6 g/dL (11.5-16.0); IMMATURE GRAN ABSOLUTE AUTO 0.03 K/mm3 (0.00-0.10); IMMATURE GRAN PERCENT AUTO 1 % (0-1); LYMPHOCYTES ABSOLUTE AUTO 1.97 K/mm3 (0.84-5.20); LYMPHOCYTES PERCENT AUTO 38 % (21-46); MONOCYTES ABSOLUTE AUTO 0.31 K/mm3 (0.16-1.47); MONOCYTES PERCENT AUTO 6 % (4-13); Mean Corpuscular HGB 28.9 pg (26.0-34.0); Mean Corpuscular HGB Conc 33.1 g/dL (31.5-36.5); Mean Corpuscular Volume 87 fL (80-100); NEUTROPHILS ABSOLUTE AUTO 2.67 K/mm3 (1.96-9.15); NEUTROPHILS PERCENT AUTO 52 % (41-73); Platelet Count 342 K/mm3 (150-400); RDW Coefficient Variation 15.4 % (11.7-14.2); RDW Standard Deviation 49.3 fL (35.1-46.3); Red Blood Cell Count 3.32 M/mm3 (3.80-5.20); White Blood Cell Count 5.13 K/mm3 (4.00-11.30)
--- NOTE | 2022-10-16 05:03 | NUR ---
NO ISSUES WITH MENTAION THIS SHIFT, ALERT AND ORIENTED X4, COOPERATIVE WITH CARE AND STAND BY WITH BRP. IV SL AND WNL. LUNGS ARE DIM WITH A COARSE NON PRODUCTIVE COUGH. NO EDEMA AND TELE NS AT 84 PER TECH. SLEPT MOST OF THE NIGHT. WILL CONT TO MONITOR.
[2022-10-16 05:45] LABS: Calcium, Blood 6.3 mg/dL (8.5-10.1); Creatinine, Blood 0.67 mg/dL (0.40-1.00); Potassium, Blood 3.5 mmol/L (3.5-5.5)
--- NOTE | 2022-10-16 15:32 | NUR ---
RM NOTE PT ORIENTATED X 4. UP INDEPENDENTLY TO THE BATHROOM. WALKED IN HALLWAY WITH RN, SLIGHTLY UNSTEADY BUT DID OKAY. C PROGRAMMER SAID NOTE REPORTS PT HAS HAD HOME HEALTH AND WILL SEND THEMN A MESSAGE TO RESTART IT. PT SAID SHE HAS NEVER HAD HOME HEALTH AND WILL NOT HAVE HOME HEALTH. DR SWAN INFORMED OF WALKING STATUS AND PT WISHES.
--- NOTE | 2022-10-16 18:02 | NUR ---
MS GODINEZ WAS DISCHARGED FROM [facility] AT 1715 WITH HER , ESCORTED VIA W/C TO EXIT. DENIED C/O PAIN OR SOB THIS SHIFT. VERBALISED GOOD UNDERSTANDING OF WRITTEN AND VERBAL DISCHARGE INSTRUCTIONS. PIV X 2 REMOVED INTACT PRIOR TO DC. TELEMETRY REMOVED. SHE DECLINED HOME HEALTH OR WALKER, SHE WAS A LITTLE UNSTEADY WHEN WALKING IN THE HALLWAYS. RECEIVED IV MAGNESIUM PRIOR TO DISCHARGE.
== END 2022-10-16 17:26 | disposition home or self-care (01) | DRG 640 ==
LOC: ER 18:54 → MEDS 10-15 03:18
PROVIDERS: Emergency Medicine; Internal Medicine; Student in an Organized Health Care Education/Training Program; ADMIT Internal Medicine
DX: E83.42 Hypomagnesemia (principal); G92.8 Other toxic encephalopathy; E87.1 Hypo-osmolality and hyponatremia; E87.6 Hypokalemia; Z66 Do not resuscitate; J44.9 Chronic obstructive pulmonary disease, unspecified; I10 Essential (primary) hypertension; T48.1X5A Adverse effect of skeletal muscle relaxants [neuromuscular blocking agents], initial encounter; T40.425A Adverse effect of tramadol, initial encounter; F03.90 Unspecified dementia, unspecified severity, without behavioral disturbance, psychotic disturbance, mood disturbance, and anxiety; Z86.16 Personal history of COVID-19; Z79.02 Long term (current) use of antithrombotics/antiplatelets; Z79.51 Long term (current) use of inhaled steroids; Z79.52 Long term (current) use of systemic steroids; Z79.2 Long term (current) use of antibiotics; Z79.899 Other long term (current) drug therapy; Z79.82 Long term (current) use of aspirin; Z79.891 Long term (current) use of opiate analgesic; Z86.79 Personal history of other diseases of the circulatory system; Z98.890 Other specified postprocedural states; Z90.710 Acquired absence of both cervix and uterus; Z85.820 Personal history of malignant melanoma of skin; Z88.1 Allergy status to other antibiotic agents; Z88.5 Allergy status to narcotic agent; Z88.8 Allergy status to other drugs, medicaments and biological substances; Z87.891 Personal history of nicotine dependence
CPT/HCPCS: 36415; 51701; 70450; 71045; 74177; 80048; 80053; 81001; 83735; 84145; 84484; 85025; 87040; 93005; 93010; 94640; 94664; 94760; 96365; 96375; 99285-25; A9270; J0295; J1650; J2405; J3475; J3480; J7030; J7050; Q9967

== ENCOUNTER 2022-11-21 13:50 | Inpatient (IN) | payer MEDICARE ==
[~2022-11-21] VITALS: Ht 157.5 cm; Wt 54.0 kg
[~2022-11-21 13:50] MED LIST changes: +CEFD300 PO; +Monodox100 MG PO; +POTCHL20ER PO; +ZYRTEC10 M2 PO
[2022-11-21 14:54] LABS: BASOPHILS ABSOLUTE AUTO 0.04 K/mm3 (0.00-0.23); BASOPHILS PERCENT AUTO 0 % (0-2); EOSINOPHILS PERCENT AUTO 0 % (0-6); Hematocrit 35.2 % (33.0-51.0); Hemoglobin 11.6 g/dL (11.5-16.0); IMMATURE GRAN ABSOLUTE AUTO 0.12 K/mm3 (0.00-0.10); IMMATURE GRAN PERCENT AUTO 1 % (0-1); LYMPHOCYTES ABSOLUTE AUTO 0.81 K/mm3 (0.84-5.20); LYMPHOCYTES PERCENT AUTO 5 % (21-46); MONOCYTES ABSOLUTE AUTO 0.44 K/mm3 (0.16-1.47); MONOCYTES PERCENT AUTO 3 % (4-13); Mean Corpuscular HGB 27.3 pg (26.0-34.0); Mean Corpuscular Volume 83 fL (80-100); Mean Platelet Volume 9.4 fL (9.1-12.4); NEUTROPHILS ABSOLUTE AUTO 15.19 K/mm3 (1.96-9.15); NEUTROPHILS PERCENT AUTO 92 % (41-73); Platelet Count 330 K/mm3 (150-400); RDW Coefficient Variation 15.2 % (11.7-14.2); RDW Standard Deviation 45.8 fL (35.1-46.3); Red Blood Cell Count 4.25 M/mm3 (3.80-5.20)
[2022-11-21 15:13] LABS: Albumin/Globulin Ratio 0.7 (0.8-1.8); Bilirubin, Total 0.8 mg/dL (0.1-1.0); Bun/Creatinine Ratio 23.3 (12.0-20.0); Calcium, Blood 7.6 mg/dL (8.5-10.1); Creatinine, Blood 0.56 mg/dL (0.40-1.00); Globulin, Blood 4.4 g/dL (2.2-4.0); Potassium, Blood 3.1 mmol/L (3.5-5.5); Total Protein, Blood 7.4 g/dL (6.4-8.2)
[2022-11-21 16:12] LABS: Source, Urine Voided
[2022-11-21 16:17] LABS: Appearance, Urine Clear (Clear); Bilirubin, Urine Neg (Neg); Blood, Urine Neg (Neg); Color, Urine Yellow (P-Yellow); Glucose Qualitative, Urine Neg (Neg); Ketones, Urine 4+ (Neg); Leukocyte Esterase, Urine 1+ (Neg); Nitrite, Urine Neg (Neg); Protein, Urine 2+ (Neg); Urobilinogen, Urine NORM (Normal)
[2022-11-21 16:49] LABS: Amorphous Light (0-Heavy); Bacteria Many /hpf; Mucus Light (0-Heavy); Red Blood Cells, Urine 0-2 /hpf (0-2); Squamous Epithelial Cells Few /hpf (Few)
--- NOTE | 2022-11-21 23:57 | NUR ---
DR CLEMONS REQUESTED ZOSYN BE HELD UNTIL PT ABLE TO PRODUCE SPUTUM CULTURE BUT STILL HAS NOT BEEN ABLE TO. CALL TO DR CLEMONS WHO GAVE OK TO GO AHEAD AND START ABx.
[2022-11-22 04:51] LABS: BASOPHILS ABSOLUTE AUTO 0.07 K/mm3 (0.00-0.23); BASOPHILS PERCENT AUTO 1 % (0-2); EOSINOPHILS ABSOLUTE AUTO 0.02 K/mm3 (0.00-0.68); EOSINOPHILS PERCENT AUTO 0 % (0-6); Hematocrit 30.5 % (33.0-51.0); IMMATURE GRAN ABSOLUTE AUTO 0.06 K/mm3 (0.00-0.10); IMMATURE GRAN PERCENT AUTO 1 % (0-1); LYMPHOCYTES ABSOLUTE AUTO 1.67 K/mm3 (0.84-5.20); LYMPHOCYTES PERCENT AUTO 16 % (21-46); MONOCYTES ABSOLUTE AUTO 0.65 K/mm3 (0.16-1.47); MONOCYTES PERCENT AUTO 6 % (4-13); Mean Corpuscular HGB 27.5 pg (26.0-34.0); Mean Corpuscular HGB Conc 32.8 g/dL (31.5-36.5); Mean Corpuscular Volume 84 fL (80-100); Mean Platelet Volume 9.4 fL (9.1-12.4); NEUTROPHILS ABSOLUTE AUTO 7.98 K/mm3 (1.96-9.15); NEUTROPHILS PERCENT AUTO 76 % (41-73); Platelet Count 283 K/mm3 (150-400); RDW Coefficient Variation 15.4 % (11.7-14.2); RDW Standard Deviation 47.5 fL (35.1-46.3); Red Blood Cell Count 3.64 M/mm3 (3.80-5.20); White Blood Cell Count 10.45 K/mm3 (4.00-11.30)
[2022-11-22 05:08] LABS: Bun/Creatinine Ratio 22.3 (12.0-20.0); Calcium, Blood 6.7 mg/dL (8.5-10.1); Creatinine, Blood 0.63 mg/dL (0.40-1.00); Magnesium, Blood 1.9 mg/dL (1.6-2.4); Potassium, Blood 3.3 mmol/L (3.5-5.5)
--- NOTE | 2022-11-22 07:12 | NUR ---
PEOPLESOFT CRM DEVELOPER SUMMARY: A&Ox4. PLEASANT AND COOPERATIVE WITH CARE. CALLS APPROPRIATELY AND IS ABLE TO COMMUNICATE NEEDS EFFECTIVELY. ORIENTED TO ABILITIES AND EXHIBITS GOOD JUDGMENT.
--- NOTE | 2022-11-22 18:19 | NUR ---
SHIFT SUMMARY PT A&O X 4. VSS. APPETITE GOOD. REQUESTED SOLID FOOD WITH TRAYS TOMORROW. PLACED CALL TO DR. SWAN. ORDERS RECEIVED FOR ADA DIET. PT SWALLOWING WELL, NO S/S OF ASPIRATION. PT AMBULATED TO RESTROOM USING THE WALKER WITH STDBY ASSIST. MEDICATED ONCE TODAY FOR C/O DIZZINESS WITH GOOD RELIEF. DENIES NAUSEA. PT REQUESTED IV TO BE MOVED TO A NEW AREA TO MINIMIZE IV PUMP FROM ALARMING. PIV IN L AC REMOVED & NEW IV MOVED TO R FOREARM X 1 ATTEMPT W/20G. PLAN IS FOR CASE MANAGEMENT TO ASSESS DC DISPOSITION AND PT/OT/ST TO EVAL.
[2022-11-23 04:46] LABS: BASOPHILS ABSOLUTE AUTO 0.08 K/mm3 (0.00-0.23); BASOPHILS PERCENT AUTO 1 % (0-2); EOSINOPHILS ABSOLUTE AUTO 0.16 K/mm3 (0.00-0.68); EOSINOPHILS PERCENT AUTO 2 % (0-6); Hematocrit 30.4 % (33.0-51.0); IMMATURE GRAN ABSOLUTE AUTO 0.02 K/mm3 (0.00-0.10); IMMATURE GRAN PERCENT AUTO 0 % (0-1); LYMPHOCYTES ABSOLUTE AUTO 1.84 K/mm3 (0.84-5.20); LYMPHOCYTES PERCENT AUTO 21 % (21-46); MONOCYTES ABSOLUTE AUTO 0.61 K/mm3 (0.16-1.47); MONOCYTES PERCENT AUTO 7 % (4-13); Mean Corpuscular HGB 27.5 pg (26.0-34.0); Mean Corpuscular HGB Conc 32.9 g/dL (31.5-36.5); Mean Corpuscular Volume 84 fL (80-100); Mean Platelet Volume 9.4 fL (9.1-12.4); NEUTROPHILS ABSOLUTE AUTO 5.87 K/mm3 (1.96-9.15); NEUTROPHILS PERCENT AUTO 69 % (41-73); Platelet Count 293 K/mm3 (150-400); RDW Coefficient Variation 15.3 % (11.7-14.2); RDW Standard Deviation 46.4 fL (35.1-46.3); Red Blood Cell Count 3.63 M/mm3 (3.80-5.20); White Blood Cell Count 8.58 K/mm3 (4.00-11.30)
[2022-11-23 05:18] LABS: Calcium, Blood 7.1 mg/dL (8.5-10.1); Creatinine, Blood 0.67 mg/dL (0.40-1.00); Magnesium, Blood 1.5 mg/dL (1.6-2.4)
--- NOTE | 2022-11-23 05:27 | NUR ---
SHIFT SUMMARY; PT IS AXO X4, PLEASANT AND COOPERATIVE W/CARE. PT USES THE CALL LIGHT APPROPRIATELY AND IS ABLE TO MAKE NEEDS KNOWN. PT IS A 1 ASSIST TO THE BATHROOM. NO REPORTS OF DIZZINESS THIS SHIFT. PT RECIEVED ZOSYN X2. TELE IS IN PLACE, NSR. CURRENTLY THE PT IS RESTING IN BED WITH THE BED IN THE LOWEST POSITION AND THE CALL LIGHT AT BEDSIDE.
[2022-11-23] MEDS ORDERED: MECL25 PO (15:32)
--- NOTE | 2022-11-23 17:19 | NUR ---
PT DISCHARGED FROM THE UNIT. IV REMOVED. DISCHARGE INSTRUCTIONS REVIEWED. MEDICATIONS FAXED TO PHARMACY. PT LEFT VIA WHEEL CHAIR. TO DRIVE HOME
== END 2022-11-23 16:03 | disposition home health service (06) | DRG 149 ==
LOC: ER 13:50 → MEDS 17:24
PROVIDERS: Emergency Medicine; Physician Assistant; Student in an Organized Health Care Education/Training Program; ADMIT Hospitalist
DX: R42 Dizziness and giddiness (principal); Z66 Do not resuscitate; I10 Essential (primary) hypertension; E78.5 Hyperlipidemia, unspecified; G89.4 Chronic pain syndrome; E87.6 Hypokalemia; E83.42 Hypomagnesemia; R29.6 Repeated falls; J44.9 Chronic obstructive pulmonary disease, unspecified; Z87.891 Personal history of nicotine dependence; Z90.710 Acquired absence of both cervix and uterus; Z90.89 Acquired absence of other organs; Z88.1 Allergy status to other antibiotic agents; Z88.5 Allergy status to narcotic agent; Z88.8 Allergy status to other drugs, medicaments and biological substances; Z79.51 Long term (current) use of inhaled steroids; Z79.82 Long term (current) use of aspirin; Z79.899 Other long term (current) drug therapy
CPT/HCPCS: 36415; 51701; 70450; 71046; 80048; 80053; 81001; 83735; 84484; 85025; 87070; 87077; 87086; 87147; 87186; 87205; 92610; 93005; 93010; 96374; 96375; 97116; 97162; 97165; 97530; 97535; 99285-25; A9270; J2405; J2543; J2550; J3360; J3475; J3480; J7050

== ENCOUNTER → 2022-12-30 | Outpatient (CLI) | payer MEDICARE ==
[~2022-12-30] MED LIST changes: +MECL25 PO
== END | disposition home or self-care (01) ==
LOC: LAB 11:59 → LAB SHORT 11:59
DX: L08.9 Local infection of the skin and subcutaneous tissue, unspecified (principal)
CPT/HCPCS: 87070; 87077; 87147; 87186; 87205

== ENCOUNTER → 2023-03-18 | Outpatient (CLI) | payer MEDICARE ==
[2023-03-18 14:19] LABS: Source, Urine Voided
[2023-03-18 16:19] LABS: Appearance, Urine Hazy (Clear); Bilirubin, Urine Neg (Neg); Blood, Urine 4+ (Neg); Color, Urine Yellow (P-Yellow); Glucose Qualitative, Urine Neg (Neg); Ketones, Urine Neg (Neg); Leukocyte Esterase, Urine 1+ (Neg); Nitrite, Urine Neg (Neg); Protein, Urine Neg (Neg); Urobilinogen, Urine NORM (Normal)
[2023-03-18 16:28] LABS: Bacteria Mod /hpf; Mucus Light (0-Heavy); Squamous Epithelial Cells Few /hpf (Few); White Blood Cells, Urine 0-2 /hpf (0-5)
[2023-03-19 11:52] LABS: Stool Occult Bld Immuno 1 Negative (NEGATIVE)
== END ==
LOC: LAB 14:14 → LAB SHORT 14:14
PROVIDERS: Student in an Organized Health Care Education/Training Program
DX: D50.9 Iron deficiency anemia, unspecified (principal)
CPT/HCPCS: 81001; 82274; 87086

== ENCOUNTER 2024-05-02 02:09 | Day surgery (SDC) | payer MEDICARE ==
[~2024-05-02 02:09] MED LIST changes: -ALBU8HFA2 INH; +AMLODIPINE BES2.5 MG PO; +APHEN325 M1 PO; -ASPI81CH PO; +ATOR40TA PO; +Amlodipine Bes2.5 MG PO; +Aspir 8181 MG PO; -B-100 COMPLEX100 MG PO; +B-121000 MC3 PO; +Brovana15 MCG/2 M NEB; +FISH OIL 1,0001 EA10 PO; +FOLI1 PO; +Hydroxychloroq200 MG PO; +METHOTREXATE2.510 PO; +METO50ER PO; +PANT40 PO; +PEPCID40 MG PO; +Prednisone10 MG PO; +Ventolin/Prove6.7 GM INH; +Vitamin D1000 UNI1 PO
[2024-05-02 14:08] VITALS: BP 152/65
[2024-05-02] MEDS ORDERED: INFLIXIMAB DYYB IV SCH (14:20)
[2024-05-02] MEDS ORDERED: NS IV SCH (14:20)
== END 2024-05-02 17:10 | disposition home or self-care (01) ==
LOC: ATC 02:09
DX: M06.00 Rheumatoid arthritis without rheumatoid factor, unspecified site (principal)
CPT/HCPCS: 96413; 96415; J7050; Q5103

== ENCOUNTER 2024-06-07 05:31 | Day surgery (SDC) | payer MEDICARE ==
[~2024-06-07] VITALS: Ht 157.5 cm; Wt 44.8 kg
[2024-06-07] MEDS ORDERED: Lactated Ringer's 1,000 ML IV ONE ×2 (10:23→11:12)
[2024-06-07] MEDS ORDERED: propofoL 50 ML IV ONE (10:23)
[2024-06-07 13:19] VITALS: BP 111/82
== END 2024-06-07 13:15 | disposition home or self-care (01) ==
LOC: ORSCSDS 05:31
PROVIDERS: Internal Medicine Gastroenterology
PROC: 0DJ08ZZ Inspection of Upper Intestinal Tract, Via Natural or Artificial Opening Endoscopic (ICD-10-PCS; principal; 2024-06-07 11:45)
DX: Z87.11 Personal history of peptic ulcer disease (principal); K22.89 Other specified disease of esophagus; I10 Essential (primary) hypertension; I47.10 Supraventricular tachycardia, unspecified; E78.5 Hyperlipidemia, unspecified; K21.9 Gastro-esophageal reflux disease without esophagitis; Z95.0 Presence of cardiac pacemaker; M85.80 Other specified disorders of bone density and structure, unspecified site; Z79.82 Long term (current) use of aspirin; Z79.899 Other long term (current) drug therapy
CPT/HCPCS: J2704; J7120

== ENCOUNTER 2024-09-19 06:54 | Day surgery (SDC) | payer MEDICARE ==
[2024-09-19 14:07] VITALS: BP 125/70
[2024-09-19] MEDS ORDERED: NS IV SCH (14:15)
[2024-09-19] MEDS ORDERED: INFLIXIMAB DYYB IV SCH (14:15)
== END 2024-09-19 16:50 | disposition home or self-care (01) ==
LOC: ATC 06:54
DX: M06.00 Rheumatoid arthritis without rheumatoid factor, unspecified site (principal); J44.9 Chronic obstructive pulmonary disease, unspecified; M81.0 Age-related osteoporosis without current pathological fracture; M15.9 Polyosteoarthritis, unspecified; Z79.899 Other long term (current) drug therapy; Z88.6 Allergy status to analgesic agent; Z88.5 Allergy status to narcotic agent; Z88.1 Allergy status to other antibiotic agents; Z88.8 Allergy status to other drugs, medicaments and biological substances
CPT/HCPCS: 96413; 96415; J7050; Q5103

== ENCOUNTER 2024-10-20 01:23 | Day surgery (SDC) | payer MEDICARE ==
[2024-10-20] MEDS ORDERED: ABATACEPT IV SCH (06:00)
[2024-10-20] MEDS ORDERED: NS IV SCH (06:00)
[2024-10-20] MEDS ORDERED: MALTOSE IV SCH (06:00)
[2024-10-20 14:02] VITALS: BP 128/67
== END 2024-10-20 15:00 | disposition home or self-care (01) ==
LOC: ATC 01:23
DX: M06.00 Rheumatoid arthritis without rheumatoid factor, unspecified site (principal); J44.9 Chronic obstructive pulmonary disease, unspecified; M81.0 Age-related osteoporosis without current pathological fracture; Z79.899 Other long term (current) drug therapy; Z88.5 Allergy status to narcotic agent; Z88.1 Allergy status to other antibiotic agents; Z88.6 Allergy status to analgesic agent; Z88.8 Allergy status to other drugs, medicaments and biological substances
CPT/HCPCS: 96365; J0129-JA

== ENCOUNTER 2024-11-03 03:06 | Day surgery (SDC) | payer MEDICARE ==
[2024-11-03] MEDS ORDERED: NS IV SCH (06:00)
[2024-11-03] MEDS ORDERED: ABATACEPT IV SCH (06:00)
[2024-11-03] MEDS ORDERED: MALTOSE IV SCH (06:00)
[2024-11-03 14:46] VITALS: BP 147/62
== END 2024-11-03 15:50 | disposition home or self-care (01) ==
LOC: ATC 03:06
DX: M06.00 Rheumatoid arthritis without rheumatoid factor, unspecified site (principal); J44.9 Chronic obstructive pulmonary disease, unspecified; Z88.5 Allergy status to narcotic agent; Z88.1 Allergy status to other antibiotic agents; Z88.8 Allergy status to other drugs, medicaments and biological substances; Z79.899 Other long term (current) drug therapy
CPT/HCPCS: 96365; J0129-JA

== ENCOUNTER 2024-11-17 04:35 | Day surgery (SDC) | payer MEDICARE ==
[2024-11-17] MEDS ORDERED: NS IV SCH (06:00)
[2024-11-17] MEDS ORDERED: ABATACEPT IV SCH (06:00)
[2024-11-17] MEDS ORDERED: MALTOSE IV SCH (06:00)
[2024-11-17 14:53] VITALS: BP 141/62
== END 2024-11-17 15:53 | disposition home or self-care (01) ==
LOC: ATC 04:35
DX: M06.09 Rheumatoid arthritis without rheumatoid factor, multiple sites (principal); J44.9 Chronic obstructive pulmonary disease, unspecified; M81.0 Age-related osteoporosis without current pathological fracture; Z88.5 Allergy status to narcotic agent; Z88.8 Allergy status to other drugs, medicaments and biological substances; Z79.899 Other long term (current) drug therapy
CPT/HCPCS: 96365; J0129-JA

== ENCOUNTER 2024-12-15 03:56 | Day surgery (SDC) | payer MEDICARE ==
[2024-12-15] MEDS ORDERED: NS IV SCH (06:00)
[2024-12-15] MEDS ORDERED: ABATACEPT IV SCH (06:00)
[2024-12-15] MEDS ORDERED: MALTOSE IV SCH (06:00)
[2024-12-15 14:23] VITALS: BP 135/66
== END 2024-12-15 15:15 | disposition home or self-care (01) ==
LOC: ATC 03:56
DX: M06.00 Rheumatoid arthritis without rheumatoid factor, unspecified site (principal); J44.9 Chronic obstructive pulmonary disease, unspecified; M81.0 Age-related osteoporosis without current pathological fracture; Z79.899 Other long term (current) drug therapy; Z88.5 Allergy status to narcotic agent; Z88.6 Allergy status to analgesic agent; Z88.1 Allergy status to other antibiotic agents
CPT/HCPCS: 96365; J0129-JA

== ENCOUNTER 2025-01-12 02:25 | Day surgery (SDC) | payer MEDICARE ==
[2025-01-12] MEDS ORDERED: NS IV SCH (06:00)
[2025-01-12] MEDS ORDERED: ABATACEPT IV SCH (06:00)
[2025-01-12] MEDS ORDERED: MALTOSE IV SCH (06:00)
[2025-01-12 15:00] VITALS: BP 127/69
== END 2025-01-12 16:10 | disposition home or self-care (01) ==
LOC: ATC 02:25
DX: M06.09 Rheumatoid arthritis without rheumatoid factor, multiple sites (principal); M81.0 Age-related osteoporosis without current pathological fracture; J44.9 Chronic obstructive pulmonary disease, unspecified; Z79.899 Other long term (current) drug therapy
CPT/HCPCS: 96365; J0129-JA

== ENCOUNTER 2025-02-15 00:35 | Day surgery (SDC) | payer MEDICARE ==
[~2025-02-15] VITALS: Wt 43.7 kg
[2025-02-15] MEDS ORDERED: TOCILIZUMAB IV SCH (06:00)
[2025-02-15] MEDS ORDERED: NS IV SCH (06:00)
[2025-02-15 15:05] VITALS: BP 124/56
== END 2025-02-15 16:28 | disposition home or self-care (01) ==
LOC: ATC 00:35
DX: M06.09 Rheumatoid arthritis without rheumatoid factor, multiple sites (principal); M81.0 Age-related osteoporosis without current pathological fracture; J44.9 Chronic obstructive pulmonary disease, unspecified; Z88.8 Allergy status to other drugs, medicaments and biological substances; Z79.899 Other long term (current) drug therapy
CPT/HCPCS: 96365; J3262

== ENCOUNTER 2025-03-15 01:31 | Day surgery (SDC) | payer MEDICARE ==
[2025-03-15 10:54] VITALS: BP 123/54
== END 2025-03-15 12:33 | disposition home or self-care (01) ==
LOC: ATC 01:31
DX: M06.00 Rheumatoid arthritis without rheumatoid factor, unspecified site (principal); J44.9 Chronic obstructive pulmonary disease, unspecified; M81.0 Age-related osteoporosis without current pathological fracture; Z79.631 Long term (current) use of antimetabolite agent; Z79.899 Other long term (current) drug therapy; Z88.1 Allergy status to other antibiotic agents; Z88.5 Allergy status to narcotic agent; Z88.6 Allergy status to analgesic agent; Z88.8 Allergy status to other drugs, medicaments and biological substances
CPT/HCPCS: 96365; J3262

== ENCOUNTER 2025-04-12 13:49 | Day surgery (SDC) | payer MEDICARE ==
[~2025-04-12 13:49] MED LIST changes: +Tocilizumab 200 MG in NS 90 ML IV SCH
[2025-04-12 13:51] VITALS: BP 122/72
== END 2025-04-12 15:24 | disposition home or self-care (01) ==
LOC: ATC 13:49
DX: M06.00 Rheumatoid arthritis without rheumatoid factor, unspecified site (principal); J44.9 Chronic obstructive pulmonary disease, unspecified; M81.0 Age-related osteoporosis without current pathological fracture; Z79.631 Long term (current) use of antimetabolite agent; Z79.899 Other long term (current) drug therapy; Z88.1 Allergy status to other antibiotic agents; Z88.5 Allergy status to narcotic agent; Z88.6 Allergy status to analgesic agent; Z88.8 Allergy status to other drugs, medicaments and biological substances
CPT/HCPCS: 96365; J3262

== ENCOUNTER 2025-05-10 00:42 | Day surgery (SDC) | payer MEDICARE ==
[~2025-05-10 00:42] MED LIST changes: -Tocilizumab 200 MG in NS 90 ML IV SCH
[2025-05-10 14:10] VITALS: BP 130/68
== END 2025-05-10 15:51 | disposition home or self-care (01) ==
LOC: ATC 00:42
DX: M06.00 Rheumatoid arthritis without rheumatoid factor, unspecified site (principal); J44.9 Chronic obstructive pulmonary disease, unspecified; M81.0 Age-related osteoporosis without current pathological fracture; Z79.52 Long term (current) use of systemic steroids; Z79.631 Long term (current) use of antimetabolite agent; Z79.899 Other long term (current) drug therapy; Z88.1 Allergy status to other antibiotic agents; Z88.5 Allergy status to narcotic agent; Z88.6 Allergy status to analgesic agent; Z88.8 Allergy status to other drugs, medicaments and biological substances
CPT/HCPCS: 96365; J3262

== ENCOUNTER 2025-06-07 00:37 | Day surgery (SDC) | payer MEDICARE ==
[~2025-06-07] VITALS: Wt 47.5 kg
== END 2025-06-07 15:58 | disposition home or self-care (01) ==
LOC: ATC 00:37
DX: M06.00 Rheumatoid arthritis without rheumatoid factor, unspecified site (principal); J44.9 Chronic obstructive pulmonary disease, unspecified; M81.0 Age-related osteoporosis without current pathological fracture; Z88.1 Allergy status to other antibiotic agents; Z88.5 Allergy status to narcotic agent; Z88.6 Allergy status to analgesic agent; Z79.899 Other long term (current) drug therapy
CPT/HCPCS: 96365; J3262

== ENCOUNTER 2025-07-05 02:54 | Day surgery (SDC) | payer MEDICARE ==
[2025-07-05 14:41] LABS: BASOPHILS ABSOLUTE AUTO 0.04 K/mm3 (0.00-0.23); BASOPHILS PERCENT AUTO 0 % (0-2); EOSINOPHILS ABSOLUTE AUTO 0.07 K/mm3 (0.00-0.68); EOSINOPHILS PERCENT AUTO 1 % (0-6); Hematocrit 34.0 % (33.0-51.0); Hemoglobin 11.0 g/dL (11.5-16.0); IMMATURE GRAN ABSOLUTE AUTO 0.04 K/mm3 (0.00-0.10); IMMATURE GRAN PERCENT AUTO 0 % (0-1); LYMPHOCYTES ABSOLUTE AUTO 2.25 K/mm3 (0.84-5.20); LYMPHOCYTES PERCENT AUTO 21 % (21-46); MONOCYTES ABSOLUTE AUTO 1.36 K/mm3 (0.16-1.47); MONOCYTES PERCENT AUTO 13 % (4-13); Mean Corpuscular HGB Conc 32.4 g/dL (31.5-36.5); Mean Corpuscular Volume 91 fL (80-100); NEUTROPHILS ABSOLUTE AUTO 6.91 K/mm3 (1.96-9.15); NEUTROPHILS PERCENT AUTO 65 % (41-73); NRBC ABSOLUTE 0.00 K/mm3 (0.00-0.02); NRBC Auto 0.0 /100 WBC (0.0-0.2); Platelet Count 249 K/mm3 (150-400); RDW Coefficient Variation 17.9 % (11.7-14.2); RDW Standard Deviation 59.7 fL (35.1-46.3)
[2025-07-05 14:46] VITALS: BP 135/76
[2025-07-05 15:25] LABS: C-REACTIVE PROTEIN, EXT RANGE 2.44 mg/dL (0.000-0.300)
[2025-07-05 15:28] LABS: Alanine Aminotransfer (ALT/SGP 23.0 U/L (12-78); Albumin, Blood 3.3 g/dL (3.4-5.0); Albumin/Globulin Ratio 0.9 (0.8-1.8); Anion Gap 7.0 mmol/L (3-11); Aspartate Aminotrans (AST/SGOT 19.0 U/L (12-37); Bilirubin, Total 0.7 mg/dL (0.1-1.0); Blood Urea Nitrogen 15.0 mg/dL (8-24); CO2, Blood 28.0 mmol/L (21-32); Calcium, Blood 8.7 mg/dL (8.5-10.1); Chloride, Blood 102.0 mmol/L (98-108); Creatinine, Blood 0.68 mg/dL (0.40-1.00); Globulin, Blood 3.5 g/dL (2.2-4.0); Glucose, Blood 90.0 mg/dL (70-99); Potassium, Blood 4.1 mmol/L (3.5-5.5); Sodium, Blood 133.0 mmol/L (136-145); Total Protein, Blood 6.8 g/dL (6.4-8.2)
--- NOTE | 2025-07-05 16:16 | NUR ---
LAB RESULTS FROM TODAY FAXED TO DR. BEE'S OFFICE.
== END 2025-07-05 15:48 | disposition home or self-care (01) ==
LOC: ATC 02:54
PROVIDERS: Internal Medicine
DX: M06.00 Rheumatoid arthritis without rheumatoid factor, unspecified site (principal); J44.9 Chronic obstructive pulmonary disease, unspecified; M81.0 Age-related osteoporosis without current pathological fracture; D84.81 Immunodeficiency due to conditions classified elsewhere; F17.200 Nicotine dependence, unspecified, uncomplicated; Z79.899 Other long term (current) drug therapy; Z88.6 Allergy status to analgesic agent; Z88.5 Allergy status to narcotic agent; Z88.1 Allergy status to other antibiotic agents; Z88.8 Allergy status to other drugs, medicaments and biological substances
CPT/HCPCS: 36591; 80053; 85025; 85651; 86140; 96365; J3262

== ENCOUNTER 2025-08-03 01:14 | Day surgery (SDC) | payer MEDICARE ==
[~2025-08-03] VITALS: Wt 48.5 kg
[2025-08-03 15:09] VITALS: BP 105/59
[2025-08-03 15:52] LABS: BASOPHILS ABSOLUTE AUTO 0.04 K/mm3 (0.00-0.23); BASOPHILS PERCENT AUTO 0 % (0-2); EOSINOPHILS ABSOLUTE AUTO 0.05 K/mm3 (0.00-0.68); EOSINOPHILS PERCENT AUTO 1 % (0-6); Hematocrit 33.9 % (33.0-51.0); Hemoglobin 11.2 g/dL (11.5-16.0); IMMATURE GRAN ABSOLUTE AUTO 0.05 K/mm3 (0.00-0.10); IMMATURE GRAN PERCENT AUTO 1 % (0-1); LYMPHOCYTES ABSOLUTE AUTO 2.34 K/mm3 (0.84-5.20); LYMPHOCYTES PERCENT AUTO 23 % (21-46); MONOCYTES ABSOLUTE AUTO 1.36 K/mm3 (0.16-1.47); MONOCYTES PERCENT AUTO 13 % (4-13); Mean Corpuscular HGB Conc 33.0 g/dL (31.5-36.5); Mean Corpuscular Volume 91 fL (80-100); NEUTROPHILS ABSOLUTE AUTO 6.32 K/mm3 (1.96-9.15); NEUTROPHILS PERCENT AUTO 62 % (41-73); NRBC ABSOLUTE 0.00 K/mm3 (0.00-0.02); NRBC Auto 0.0 /100 WBC (0.0-0.2); Platelet Count 255 K/mm3 (150-400); RDW Coefficient Variation 17.8 % (11.7-14.2); RDW Standard Deviation 59.3 fL (35.1-46.3)
[2025-08-03 16:11] LABS: C-REACTIVE PROTEIN, EXT RANGE 6.29 mg/dL (0.000-0.300)
[2025-08-03 16:13] LABS: Alanine Aminotransfer (ALT/SGP 22.0 U/L (12-78); Albumin, Blood 3.2 g/dL (3.4-5.0); Albumin/Globulin Ratio 0.8 (0.8-1.8); Anion Gap 8.0 mmol/L (3-11); Aspartate Aminotrans (AST/SGOT 17.0 U/L (12-37); Bilirubin, Total 0.8 mg/dL (0.1-1.0); Blood Urea Nitrogen 13.0 mg/dL (8-24); CO2, Blood 25.0 mmol/L (21-32); Calcium, Blood 8.6 mg/dL (8.5-10.1); Chloride, Blood 102.0 mmol/L (98-108); Creatinine, Blood 0.64 mg/dL (0.40-1.00); Globulin, Blood 3.8 g/dL (2.2-4.0); Glucose, Blood 86.0 mg/dL (70-99); Potassium, Blood 3.8 mmol/L (3.5-5.5); Sodium, Blood 131.0 mmol/L (136-145); Total Protein, Blood 7.0 g/dL (6.4-8.2)
== END 2025-08-03 16:53 | disposition home or self-care (01) ==
LOC: ATC 01:14
PROVIDERS: Internal Medicine
DX: M06.00 Rheumatoid arthritis without rheumatoid factor, unspecified site (principal); I10 Essential (primary) hypertension; K21.9 Gastro-esophageal reflux disease without esophagitis; J44.9 Chronic obstructive pulmonary disease, unspecified; Z88.5 Allergy status to narcotic agent; Z88.8 Allergy status to other drugs, medicaments and biological substances; Z88.1 Allergy status to other antibiotic agents; Z79.899 Other long term (current) drug therapy
CPT/HCPCS: 36591; 80053; 85025; 85651; 86140; J3262

== ENCOUNTER 2025-08-31 02:47 | Day surgery (SDC) | payer MEDICARE ==
[2025-08-31 13:50] VITALS: BP 164/71
[2025-08-31 14:25] LABS: BASOPHILS ABSOLUTE AUTO 0.06 K/mm3 (0.00-0.23); BASOPHILS PERCENT AUTO 1 % (0-2); EOSINOPHILS ABSOLUTE AUTO 0.07 K/mm3 (0.00-0.68); EOSINOPHILS PERCENT AUTO 1 % (0-6); Hematocrit 34.8 % (33.0-51.0); Hemoglobin 11.4 g/dL (11.5-16.0); IMMATURE GRAN ABSOLUTE AUTO 0.03 K/mm3 (0.00-0.10); IMMATURE GRAN PERCENT AUTO 0 % (0-1); LYMPHOCYTES ABSOLUTE AUTO 2.80 K/mm3 (0.84-5.20); LYMPHOCYTES PERCENT AUTO 25 % (21-46); MONOCYTES ABSOLUTE AUTO 1.45 K/mm3 (0.16-1.47); MONOCYTES PERCENT AUTO 13 % (4-13); Mean Corpuscular HGB Conc 32.8 g/dL (31.5-36.5); Mean Corpuscular Volume 92 fL (80-100); NEUTROPHILS ABSOLUTE AUTO 6.69 K/mm3 (1.96-9.15); NEUTROPHILS PERCENT AUTO 60 % (41-73); NRBC ABSOLUTE 0.00 K/mm3 (0.00-0.02); NRBC Auto 0.0 /100 WBC (0.0-0.2); Platelet Count 267 K/mm3 (150-400); RDW Coefficient Variation 17.0 % (11.7-14.2); RDW Standard Deviation 57.3 fL (35.1-46.3)
[2025-08-31 14:59] LABS: Alanine Aminotransfer (ALT/SGP 24.0 U/L (12-78); Albumin, Blood 3.3 g/dL (3.4-5.0); Albumin/Globulin Ratio 0.8 (0.8-1.8); Anion Gap 10.0 mmol/L (3-11); Aspartate Aminotrans (AST/SGOT 22.0 U/L (12-37); Bilirubin, Total 1.0 mg/dL (0.1-1.0); Blood Urea Nitrogen 17.0 mg/dL (8-24); C-REACTIVE PROTEIN, EXT RANGE 3.89 mg/dL (0.000-0.300); CO2, Blood 25.0 mmol/L (21-32); Calcium, Blood 8.9 mg/dL (8.5-10.1); Chloride, Blood 100.0 mmol/L (98-108); Creatinine, Blood 0.68 mg/dL (0.40-1.00); Globulin, Blood 4.1 g/dL (2.2-4.0); Glucose, Blood 100.0 mg/dL (70-99); Potassium, Blood 3.7 mmol/L (3.5-5.5); Sodium, Blood 131.0 mmol/L (136-145); Total Protein, Blood 7.4 g/dL (6.4-8.2)
== END 2025-08-31 15:17 | disposition home or self-care (01) ==
LOC: ATC 02:47
PROVIDERS: Internal Medicine
DX: M06.00 Rheumatoid arthritis without rheumatoid factor, unspecified site (principal); I10 Essential (primary) hypertension; J44.9 Chronic obstructive pulmonary disease, unspecified; D84.81 Immunodeficiency due to conditions classified elsewhere; Z79.899 Other long term (current) drug therapy; Z88.5 Allergy status to narcotic agent; Z88.6 Allergy status to analgesic agent; Z88.1 Allergy status to other antibiotic agents; Z88.8 Allergy status to other drugs, medicaments and biological substances
CPT/HCPCS: 80053; 85025; 85651; 86140; 96365; J3262